=== PATIENT | male | born 1965 | race Caucasian/White ===

== ENCOUNTER 2017-07-09 13:23 | Emergency (ER) | payer BC, OTHER ==
[~2017-07-09] VITALS: Ht 182.9 cm; Wt 77.9 kg
[2017-07-09 13:27] VITALS: TEMP 36.7; Ht 182.9 cm; Wt 77.9 kg
[2017-07-09] MEDS ORDERED: XYLOCAINE 1%/SOD BICARB 20 ML VIAL INFIL ONE (13:45)
[2017-07-09 14:18] VITALS: BP 123/70; PULSE 69; O2SAT 96
--- NOTE | 2017-07-09 15:07 | EMERGENCY ROOM VISIT NOTE ---
History First contact with patient: 13:29 Chief Complaint: LACERATION/CUT (SUT/DERMABOND) Stated Complaint: LACERATION TO FOREHEAD Nursing Triage Summary: Right eyebrow laceration. Bleeding controlled. History of Present Illness The patient is a 51 year old male who presents to the Emergency Room with complaints of a right eyebrow laceration. The patient reports that he accidentally head butted someone while playing basketball this morning. The patient denies any loss of consciousness, headache, nausea or other significant discomfort, rating his pain a 1 out of 10. Tetanus immunization is up-to-date. The patient denies any paresthesias or numbness of the face or scalp. He denies any significant bleeding from the wound. Review of Systems 6 system review was performed and was negative except for pertinent positives and negatives as indicated in history of present illness Past Medical/Surgical History Medical Problems: (1) Hyperlipidemia Nec/Nos (2) Iron Defic Anemia Nos Surgical Problems: (1) History of ankle surgery (2) History of knee surgery Family History FH: heart disease FH: lung disease Social History Smoking Status: Never Smoker Alcohol Use: occasionally Marital Status: Housing Status: lives with family Occupation Status: employed Current/Historical Medications No Active Prescriptions or Reported Meds Physical Exam Vital Signs Date Time Temp Pulse Resp B/P (MAP) Pulse Ox O2 Delivery O2 Flow Rate FiO2 07/09/17 14:18 69 18 123/70 96 07/09/17 13:27 36.7 66 20 128/75 97 Room Air Physical Exam CONSTITUTIONAL: Healthy and well nourished. Alert and oriented X 3 with positive affect. GCS 15. HEENT: Examination shows a 2 cm stellate laceration just above the right medial eyebrow margin. No active bleeding or hematoma formation. Pupils equal, round and reactive. No subconjunctival hemorrhage. EOMs intact without discomfort or signs of entrapment. Patient has no other focal tenderness to palpation of the periorbital region or other facial bones. NECK: Full active range of motion without discomfort. RESPIRATORY: Clear to auscultation bilaterally with no wheezing, crackles, rhonchi or stridor. INTEGUMENTARY: No rash or other significant dermatologic conditions noted. NEUROLOGIC: Facial sensations are intact. Medical Decision & Procedures Procedure Laceration repair was performed under local anesthesia after receiving verbal consent from the patient. Using buffered 1% lidocaine without epinephrine, good local anesthesia was administered. The wound was then peripherally cleansed with iodine, then irrigated with normal saline. Exploration of the wound does not show any underlying debris or foreign body. The wound was then approximated using 6-0 nylon simple interrupted sutures. Bacitracin dressing was applied. The patient tolerated the procedure well without any significant bleeding. ED Course Patient history and physical exam were performed. Nurse's notes were reviewed. Vital signs were reviewed and were normal. Laceration repair was performed under local anesthesia. The patient was provided additional verbal and written wound care instructions. The patient was encouraged to apply ice as needed for swelling. Ibuprofen or Tylenol as needed for pain. Suture removal in 5-7 days , or seek reevaluation sooner for any signs of wound infection. Is happy with plan of care, voiced understanding of all discharge instructions, and denied any pain at the time of discharge. Medical Decision Medication Reconcilliation Current Medication List: was personally reviewed by me Blood Pressure Screening Patient's blood pressure: Normal blood pressure Impression Primary Impression: Laceration of right eyebrow Departure Information Dispostion Home / Self-Care Prescriptions No Active Prescriptions or Reported Meds Forms HOME CARE DOCUMENTATION FORM, IMPORTANT VISIT INFORMATION Patient Instructions My [facility] Additional Instructions Keep wound clean and dry. Do not allow any crusting or dried blood to accumulate on sutures. If this occurs, use a 1:1 solution of hydrogen peroxide/ water on a Q-tip to clean the wound. Use an antibiotic ointment for 3 days, then let wound dry. Suture removal in 5-7 days. Return sooner for any signs of infection (increasing redness, swelling, drainage). Ice for swelling. Ibuprofen 600 mg and/or Tylenol 1000 mg every 6 hrs as needed for pain. Problem Qualifiers Primary Impression: Laceration of right eyebrow Encounter type: initial encounter Qualified Codes: S01.111A - Laceration without foreign body of right eyelid and periocular area, initial encounter
== END 2017-07-09 14:20 | disposition home or self-care (01) ==
LOC: C.EDB 13:24 → C.EDD 14:20
DX: S01.111A Laceration without foreign body of right eyelid and periocular area, initial encounter (principal); W50.0XXA Accidental hit or strike by another person, initial encounter; E78.5 Hyperlipidemia, unspecified; D50.9 Iron deficiency anemia, unspecified; Z82.49 Family history of ischemic heart disease and other diseases of the circulatory system

== ENCOUNTER 2017-07-25 04:20 | Emergency (ER) | payer OTHER ==
[~2017-07-25] VITALS: Ht 182.9 cm; Wt 76.4 kg
[2017-07-25 04:23] VITALS: Ht 182.9 cm; Wt 76.4 kg
[2017-07-25] MEDS ORDERED: ACETAMINOPHEN 500 MG TAB PO STA (04:44)
[2017-07-25] MEDS ORDERED: SODIUM CHLORIDE 0.9% 1000ML 1,000 ML IV STA ×2 (04:44→05:59)
[2017-07-25] MEDS ORDERED: KETOROLAC TROMETHAMINE 30 MG/ML VIAL IV STA (04:44)
--- NOTE | 2017-07-25 04:54 | EMERGENCY ROOM VISIT NOTE ---
History First contact with patient: 04:29 Chief Complaint: FLU LIKE SX Stated Complaint: HEADACHE,CONGESTION,COUGH,LETHARGY History of Present Illness The patient is a 52 year old male who presents to the Emergency Room with complaints of flulike symptoms for the past 1 week. The patient reports that he has had a headache, fever, cough and fatigue for the past 1 week. Symptoms have been gradually worsening. He states that he has been having strange dreams and has difficulty sleeping due to the chills and feeling very hot. The patient reports the headache is in both sides of the top of his head and is a stabbing pain rated a 3/10. The headache is intermittent. He states the cough has been productive of yellow mucus. He does report that he had a nosebleed from both nares 2 days ago which lasted 10-15 minutes and then stopped with pressure. He has been taking NyQuil, Tylenol and ibuprofen and has not taken any medication in approximately 7 hours. 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 He denies any recent foreign travel. He denies any medical problems. He denies neck pain/stiffness, shortness of breath, chest pain, abdominal pain or urinary symptoms. Review of Systems A complete 10 point review of systems was reviewed with the patient with pertinent positives and negatives as per history of present illness. All else were negative. Past Medical/Surgical History Medical Problems: (1) Hyperlipidemia Nec/Nos (2) Iron Defic Anemia Nos Surgical Problems: (1) History of ankle surgery (2) History of knee surgery Family History FH: heart disease FH: lung disease Social History Smoking Status: Never Smoker Alcohol Use: occasionally Marital Status: Housing Status: lives with family Occupation Status: employed Current/Historical Medications Scheduled Azithromycin (Zithromax Z-Levi), 0 PO UD Physical Exam Vital Signs Date Time Temp Pulse Resp B/P (MAP) Pulse Ox O2 Delivery O2 Flow Rate FiO2 07/25/17 06:38 37.1 66 18 111/47 95 Room Air 07/25/17 06:08 37.9 07/25/17 05:45 67 18 101/52 95 Room Air 07/25/17 04:23 39.1 76 20 115/50 97 Room Air Physical Exam VITALS: Vitals are noted on the nurse's note and reviewed by myself. Vital signs stable. GENERAL: This is a 52-year-old male, in no acute distress, nondiaphoretic, well- developed well-nourished. SKIN: The skin was without rashes. EARS: External auditory canals clear, tympanic membranes pearly snell without erythema or effusion bilaterally. EYES: Pupils equal round and reactive to light and accommodation. NOSE: Patent, turbinates without inflammation or discharge. MOUTH: Mucous membranes moist. Tonsils are not enlarged. Pharynx mildly erythematous without exudate. NECK: Supple without nuchal rigidity. No lymphadenopathy. HEART: Regular rate and rhythm without murmurs gallops or rubs. LUNGS: Clear to auscultation bilaterally without wheezes, rales or rhonchi. No retractions or accessory muscle use. ABDOMEN: Positive bowel sounds x 4. Soft, nontender to palpation. NEURO: Patient was alert and oriented to person place and time. Medical Decision & Procedures ER Provider Diagnostic Interpretation: CHEST 1 VIEW: No obvious acute cardiopulmonary abnormalities. Laboratory Results 07/25/17 04:49 Red Blood Count 5.12, Mean Corpuscular Volume 88.1, Mean Corpuscular Hemoglobin 30.7, Mean Corpuscular Hemoglobin Concent 34.8, Mean Platelet Volume 9.8, Neutrophils (%) (Auto) 88.1, Lymphocytes (%) (Auto) 5.9, Monocytes (%) (Auto) 5.8, Eosinophils (%) (Auto) 0.1, Basophils (%) (Auto) 0.0, Neutrophils # (Auto) 7.57, Lymphocytes # (Auto) 0.51, Monocytes # (Auto) 0.50, Eosinophils # (Auto) 0.01, Basophils # (Auto) 0.00 07/25/17 04:49 Test 07/25/17 04:49 07/25/17 05:05 White Blood Count 8.60 K/uL (4.8-10.8) Red Blood Count 5.12 M/uL (4.7-6.1) Hemoglobin 15.7 g/dL (14.0-18.0) Hematocrit 45.1 % (42-52) Mean Corpuscular Volume 88.1 fL (80-100) Mean Corpuscular Hemoglobin 30.7 pg (25-34) Mean Corpuscular Hemoglobin Concent 34.8 g/dl (32-36) Platelet Count 129 K/uL (130-400) Mean Platelet Volume 9.8 fL (7.4-10.4) Neutrophils (%) (Auto) 88.1 % Lymphocytes (%) (Auto) 5.9 % Monocytes (%) (Auto) 5.8 % Eosinophils (%) (Auto) 0.1 % Basophils (%) (Auto) 0.0 % Neutrophils # (Auto) 7.57 K/uL (1.4-6.5) Lymphocytes # (Auto) 0.51 K/uL (1.2-3.4) Monocytes # (Auto) 0.50 K/uL (0.11-0.59) Eosinophils # (Auto) 0.01 K/uL (0-0.5) Basophils # (Auto) 0.00 K/uL (0-0.2) RDW Standard Deviation 39.1 fL (36.4-46.3) RDW Coefficient of Variation 12.1 % (11.5-14.5) Immature Granulocyte % (Auto) 0.1 % Immature Granulocyte # (Auto) 0.01 K/uL (0.00-0.02) Anion Gap 4.0 mmol/L (3-11) Est Creatinine Clear Calc Drug Dose 58.8 ml/min Estimated GFR () 57.5 Estimated GFR (Non- 49.6 BUN/Creatinine Ratio 14.3 (10-20) Calcium Level 8.7 mg/dl (8.5-10.1) Total Bilirubin 0.6 mg/dl (0.2-1) Aspartate Amino Transf (AST/SGOT) 27 U/L (15-37) Alanine Aminotransferase (ALT/SGPT) 27 U/L (12-78) Alkaline Phosphatase 65 U/L (45-117) Total Protein 7.4 gm/dl (6.4-8.2) Albumin 3.7 gm/dl (3.4-5.0) Globulin 3.7 gm/dl (2.5-4.0) Albumin/Globulin Ratio 1.0 (0.9-2) Lyme Disease IgG Antibody NEG (NEG) Lyme Disease IgM Antibody NEG (NEG) Monoscreen NEG (NEG) Urine Color YELLOW Urine Appearance CLEAR (CLEAR) Urine pH 8.0 (4.5-7.5) Urine Specific Andrews 1.023 (1.000-1.030) Urine Protein NEG (NEG) Urine Glucose (UA) NEG (NEG) Urine Ketones NEG (NEG) Urine Occult Blood NEG (NEG) Urine Nitrite NEG (NEG) Urine Bilirubin NEG (NEG) Urine Urobilinogen NEG (NEG) Urine Leukocyte Esterase NEG (NEG) Influenza Type A Antigen Neg for Influ A (NEG) Influenza Type B Antigen Neg for Influ B (NEG) Medications Administered Medications (Trade) Dose Ordered Sig/Rossy Route Start Time Stop Time Status Last Admin Dose Admin Sodium Chloride 1,000 ml @ 999 mls/hr Q1H1M STAT IV 07/25/17 04:44 07/25/17 05:44 DC 07/25/17 05:08 999 MLS/HR Ketorolac Tromethamine (Toradol Inj) 30 mg NOW STAT IV 07/25/17 04:44 07/25/17 04:46 DC 07/25/17 05:08 30 MG Acetaminophen (Tylenol Tab) 1,000 mg NOW STAT PO 07/25/17 04:44 07/25/17 04:46 DC 07/25/17 05:07 1,000 MG Sodium Chloride 1,000 ml @ 999 mls/hr Q1H1M STAT IV 07/25/17 05:59 07/25/17 06:59 DC 07/25/17 06:03 999 MLS/HR Medical Decision Differential diagnosis includes influenza, pneumonia, URI, UTI, Lyme disease, mononucleosis, meningitis, otitis media, strep pharyngitis, sepsis, among others. The patient is a 52-year-old male who presents today complaining of flu-like symptoms for the past 1 week. Labs revealed no leukocytosis, anemia, or concerning electrolyte abnormality. BUN and creatinine were slightly elevated, suggesting dehydration. Rapid flu swab was negative. Monospot was negative. Lyme screen negative. Chest x-ray showed no obvious pneumonia. Urinalysis was not suggestive of infection. Patient was administered 2 liters of NSS, Toradol and Tylenol for symptoms. As the patient has had fevers as well as productive cough for over 1 week, I did choose to treat him with an antibiotic for suspected bacterial bronchitis. He was advised to follow up closely with his PCP and return for worsening symptoms. The patient's case was reviewed with Dr. Burton, ED attending physician, who agreed with my assessment and treatment plan. Based on the patient's presentation and work up, I feel the patient is stable for outpatient treatment. The patient was educated to return to the emergency department for any worsening of their current condition or new/concerning symptoms. He will follow up with his PCP. Medication Reconcilliation Current Medication List: was personally reviewed by me Blood Pressure Screening Patient's blood pressure: Normal blood pressure Impression Primary Impression: Acute bronchitis Departure Information Dispostion Home / Self-Care Condition GOOD Prescriptions Azithromycin (ZITHROMAX Z-LEVI) 250 Mg Tab 0 PO UD, #1 PKT 2 TABS DAY 1, THEN 1 TAB DAILY FOR 4 DAYS Prov: Lindsay Garg .MARIANNA 07/25/17 Referrals Simon Blair M.D. (PCP) Patient Instructions My [facility] Additional Instructions You were prescribed Zithromax to be taken as prescribed. This is an antibiotic. All antibiotics have the potential to cause diarrhea. Stop this medication and contact a medical provider if you were to develop any significant adverse side effects including: wheezing, shortness of breath, passing out, vomiting, or a diffuse rash. Always take antibiotics as directed and COMPLETE the ENTIRE course regardless of the improvement of your symptoms. Your blood work showed signs of dehydration. Make sure to drink plenty of fluids to stay well-hydrated. For pain/fever control, you can use the following [id number] medicines ( if >12 yo): - Regular strength (325mg/tab) Tylenol (acetaminophen) 2 tabs every 4-6 hours as needed. Do not exceed 12 tablets in a 24 hour period. Avoid taking more than 4 grams (4000 mg) of Tylenol per day. This includes any other sources of acetaminophen you may take on a regular basis. - Regular strength (200 mg/tab) Advil (ibuprofen) 1-2 tabs every 4-6 hours as needed. Do not exceed a dose of 3200 mg per day. Follow-up with your primary care provider by the end of the week for a recheck. Return to the emergency department immediately if you develop worsening symptoms , shortness of breath, vomiting, neck pain/stiffness, passing out, or any other new/concerning symptoms. Problem Qualifiers Primary Impression: Acute bronchitis Bronchitis organism: unspecified organism Qualified Codes: J20.9 - Acute bronchitis, unspecified
[2017-07-25 05:01] LABS: EOS % 0.1 %; EOS ABS # 0.01 K/uL (0-0.5); HEMATOCRIT 45.1 % (42-52); HEMOGLOBIN 15.7 g/dL (14.0-18.0); IG# 0.01 K/uL (0.00-0.02); LYMPH % 5.9 %; LYMPH ABS # 0.51 K/uL (1.2-3.4); MEAN CELL VOLUME 88.1 fL (80-100); MEAN CORPUSCULAR HEMOGLOBIN 30.7 pg (25-34); MEAN CORPUSCULAR HGB CONC 34.8 g/dl (32-36); MEAN PLATELET VOLUME 9.8 fL (7.4-10.4); MONO % 5.8 %; NEUT % 88.1 %; NEUT ABS # 7.57 K/uL (1.4-6.5); PLATELET COUNT 129 K/uL (130-400); RED CELL DISTRIBUTION WIDTH CV 12.1 % (11.5-14.5); RED CELL DISTRIBUTION WIDTH SD 39.1 fL (36.4-46.3)
[2017-07-25 05:18] LABS: ALBUMIN 3.7 gm/dl (3.4-5.0); CALCIUM 8.7 mg/dl (8.5-10.1); CREATININE 1.57 mg/dl (0.60-1.40); POTASSIUM 4.1 mmol/L (3.5-5.1)
[2017-07-25 05:20] LABS: TOTAL PROTEIN 7.4 gm/dl (6.4-8.2)
[2017-07-25 05:26] LABS: MONOSPOT NEG (NEG)
[2017-07-25 05:42] LABS: INFLUENZA B ANTIGEN Neg for Influ B (NEG)
[2017-07-25] MEDS ORDERED: AZITTAB PO (06:20)
[2017-07-25 06:38] VITALS: BP 111/47; PULSE 66; TEMP 37.1; O2SAT 95
--- NOTE | 2017-07-25 06:43 | DIAGNOSTIC IMAGING REPORT ---
CHEST 2 VIEWS ROUTINE HISTORY: 52 years-old Male cough, fever acute cough and fever COMPARISON: None available TECHNIQUE: PA and lateral views of the chest FINDINGS: Cardiomediastinal and hilar silhouettes are within normal limits. There is no pneumothorax, pleural effusion, or overt pulmonary edema. Linear opacities of the basal left lower lobe seen best on the lateral view are noted. Bones of the chest appear grossly intact. IMPRESSION: Somewhat linear subsegmental opacities of the basal left lower lobe seen best on the lateral view suggest atelectasis with pneumonitis also in the differential. The above report was generated using voice recognition software. It may contain grammatical, syntax or spelling errors. Electronically signed by: Demar Metzger M.D. 07/25/2017 6:41 AM Dictated Date/Time: 07/25/2017 6:39 AM
== END 2017-07-25 07:15 | disposition home or self-care (01) ==
LOC: C.EDB 04:21
DX: J20.9 Acute bronchitis, unspecified (principal); E78.5 Hyperlipidemia, unspecified